=== PATIENT | female | born 1980 | race Caucasian/White ===

== ENCOUNTER 2016-03-25 10:54 | Emergency (ER) | payer BC, MEDICAID ==
[2016-03-25 12:26] VITALS: BP 137/94
== END 2016-03-25 14:25 | disposition left against medical advice (07) ==
LOC: ED 10:54
DX: N89.8 Other specified noninflammatory disorders of vagina (principal); Z53.21 Procedure and treatment not carried out due to patient leaving prior to being seen by health care provider

== ENCOUNTER 2016-03-26 08:22 | Emergency (ER) | payer BC ==
[2016-03-26 08:31] VITALS: BP 130/95
--- NOTE | 2016-03-26 08:57 | Emergency Department Report ---
ED Female HPI - General Chief complaint: Urogenital-Female Stated complaint: VAGINAL PAIN Time Seen by Provider: 03/26/16 08:47 Source: patient Mode of arrival: Ambulatory Limitations: No Limitations - History of Present Illness Initial comments: Patient complains of vaginal pain and white/off-white discharge x (6 days ago). Denies back or flank pain, abdominal pain, dysuria, urgency, frequency, fever, chills, nausea, vomiting, diarrhea. Denies recent abx use. Denies other acute complaints today. LMP 03/14/16. - Related Data Previous Rx's Medication Instructions Recorded Last Taken Type Cephalexin [Keflex] 500 mg PO Q6H #21 capsule 05/17/13 Unknown Rx Promethazine [Phenergan] 25 mg PO Q6H PRN #20 tablet 05/17/13 Unknown Rx Promethazine [Phenergan] 25 mg [place] Q6H PRN #6 supp.rect 05/17/13 Unknown Rx metroNIDAZOLE [Flagyl] 500 mg PO Q12HR #14 tab 03/26/16 Unknown Rx Allergies Allergy/AdvReac Type Severity Reaction Status Date / Time No Known Allergies Allergy Unverified 05/17/13 11:38 ED Review of Systems ROS: Stated complaint: VAGINAL PAIN Other details as noted in HPI Comment: All other systems reviewed and negative ED Past Medical Hx - Past Medical History Additional medical history: bacterial vaginosis - Surgical History Past Surgical History?: No - Social History Smoking Status: Never Smoker Substance Use Type: Alcohol - Medications Home Medications: Home Medications Medication Instructions Recorded Confirmed Last Taken Type Cephalexin [Keflex] 500 mg PO Q6H #21 capsule 05/17/13 Unknown Rx Promethazine [Phenergan] 25 mg PO Q6H PRN #20 tablet 05/17/13 Unknown Rx Promethazine [Phenergan] 25 mg [place] Q6H PRN #6 supp.rect 05/17/13 Unknown Rx metroNIDAZOLE [Flagyl] 500 mg PO Q12HR #14 tab 03/26/16 Unknown Rx ED Physical Exam - General Limitations: No Limitations General appearance: alert, in no apparent distress - Head Head exam: Present: atraumatic, normocephalic - Eye Eye exam: Present: normal appearance, PERRL, EOMI. Absent: scleral icterus, conjunctival injection, periorbital swelling - Neck Neck exam: Present: normal inspection, full ROM. Absent: tenderness, meningismus, lymphadenopathy - Respiratory Respiratory exam: Present: normal lung sounds bilaterally. Absent: respiratory distress - Cardiovascular Cardiovascular Exam: Present: regular rate, normal rhythm - GI/Abdominal GI/Abdominal exam: Present: soft, normal bowel sounds. Absent: distended, tenderness, guarding, rebound, rigid - External exam: Present: normal external exam. Absent: erythema, swelling, bleeding Speculum exam: Present: vaginal discharge (white). Absent: erythema, vaginal bleeding, laceration Bi-manual exam: Present: normal bi-manual exam. Absent: cervical motion tendernes, adnexal tenderness, adnexal mass, uterine enlargement, uterine tenderness - Extremities Exam Extremities exam: Present: normal inspection, full ROM, normal capillary refill. Absent: tenderness, pedal edema, joint swelling - Back Exam Back exam: Present: normal inspection, full ROM. Absent: CVA tenderness (R), CVA tenderness (L) - Neurological Exam Neurological exam: Present: alert, oriented X3, normal gait, reflexes normal. Absent: motor sensory deficit - Psychiatric Psychiatric exam: Present: normal affect, normal mood - Skin Skin exam: Present: warm, dry, intact, normal color. Absent: rash, cyanosis, diaphoretic, erythema, petechiae, pallor, abrasion, ecchymosis ED Course Vital Signs 03/26/16 08:27 Temperature 98.0 F Pulse Rate 80 Respiratory 18 Rate Blood Pressure 130/95 O2 Sat by Pulse 97 Oximetry ED Medical Decision Making - Medical Decision Making 35-year-old female with vaginal pain and discharge and positive clue cells and Trichomonas on wet prep. Patient is stable. She will be DC'd on oral Flagyl ( see prescription). Patient education, follow-up/referral, return instructions provided. Referral of sexual Partner(s) for treatment also discussed. She verbalized understanding and is agreeable to plan. Critical care attestation.: If time is entered above; I have spent that time in minutes in the direct care of this critically ill patient, excluding procedure time. ED Disposition Clinical Impression: Vulvovaginitis Disposition: DISCHARGED TO HOME OR SELFCARE Is pt being admited?: No Does the pt Need Aspirin: No Condition: Stable Instructions: Bacterial Vaginosis (ED), Trichomoniasis (ED), Safe Sex (ED) Prescriptions: metroNIDAZOLE [Flagyl] 500 mg PO Q12HR #14 tab Referrals: [facility] [Outside] - 2-3 Days
== END 2016-03-26 09:51 | disposition home or self-care (01) ==
LOC: ED 08:22
DX: N76.0 Acute vaginitis (principal)
CPT/HCPCS: 87210; 99283

== ENCOUNTER 2016-04-16 12:14 | Emergency (ER) | payer BC ==
[2016-04-16 14:06] VITALS: BP 130/82
[2016-04-16 14:46] LABS: Basophils % (Auto) 0.6 % (0.0-1.8); Eosinophils % (Auto) 4.8 % (0.0-4.3); Hematocrit 39.9 % (30.3-42.9); Hemoglobin 12.9 gm/dl (10.1-14.3); Mean Corpuscular HGB Conc 32 % (30-34); Mean Corpuscular Hemoglobin 29 pg (28-32); Mean Corpuscular Volume 90 fl (79-97); Platelet Count 271 K/mm3 (140-440); Red Blood Count 4.43 M/mm3 (3.65-5.03); Red Cell Distribution Width 13.6 % (13.2-15.2); White Blood Count 5.2 K/mm3 (4.5-11.0)
[2016-04-16 16:47] LABS: Bilirubin,Urine NEG (Negative); Blood,Urine LG (Negative); Ketones,Urine NEG (Negative); Leukocyte Esterase,Urine NEG (Negative); Mucus,Urine 1+ /HPF; Nitrite,Urine NEG (Negative); Urobilinogen,Urine < 2.0 mg/dL (<2.0)
[2016-04-16 16:49] LABS: RBC,Urine > 182.0 /HPF (0.0-6.0)
--- NOTE | 2016-04-16 18:16 | Emergency Department Report ---
HPI - General Chief Complaint: Vaginal Bleeding Time Seen by Provider: 04/16/16 18:15 - HPI HPI: Patient is a 35-year-old female who presents complaining of vaginal tones. Patient states she said about 3 packs a day and is experiencing some clots. Patient reports last menstrual period was March 11 2016. Patient states she took a test at home about a week and a half ago that was faint positive. Patient admits mild pelvic cramping. Patient denies fevers/chills/ nausea/vomiting/abdominal pain/diarrhea/sob/chest pain problems. ED Past Medical Hx - Past Medical History Additional medical history: bacterial vaginosis - Social History Smoking Status: Never Smoker Substance Use Type: Alcohol - Medications Home Medications: Home Medications Medication Instructions Recorded Confirmed Last Taken Type Cephalexin [Keflex] 500 mg PO Q6H #21 capsule 05/17/13 Unknown Rx Promethazine [Phenergan] 25 mg PO Q6H PRN #20 tablet 05/17/13 Unknown Rx Promethazine [Phenergan] 25 mg [place] Q6H PRN #6 supp.rect 05/17/13 Unknown Rx metroNIDAZOLE [Flagyl] 500 mg PO Q12HR #14 tab 03/26/16 Unknown Rx ED Review of Systems ROS: Stated complaint: POSS W/CRAMPING AND CLOTS Other details as noted in HPI Physical Exam - Physical Exam Vital Signs: Vital Signs 04/16/16 14:02 Temperature 98.8 F Pulse Rate 75 Respiratory 17 Rate Blood Pressure 130/82 O2 Sat by Pulse 100 Oximetry Physical Exam: GENERAL: Alert and oriented x3, no apparent distress, Normal Gait, atraumatic. HEAD: Head is normocephalic and a-traumatic. EYES: Extra ocular muscles are intact. Pupils are equal, round, and reactive to light and accommodation. EARS: symetrical, atraumatic, non tender. gross auditory nml bilaterally. NOSE: Nose symetrical, Nontender,Nares appeared normal. MOUTH:Mouth is well hydrated and without lesions. Mucous membranes are moist. Posterior pharynx clear, no exudate or lesions. Patent airways. NECK: Supple. Non edematous, No carotid bruits. No lymphadenopathy or thyromegaly. LUNGS: Symetrical with respiration, No wheezing, no rales or crackles, CTAB. HEART: S1, S2 present, regular rate and rhythm without murmur, no rubs, no gallops. ABDOMEN: No organomegaly was noted,Positive bowel sounds, soft, and non- distended. . Nontender to palpation on all Quadrants, NO CVA tenderness. EXTREMITIES/MUSCULOSKELETAL: No cyanosis, clubbing, rash, lesions or edema. Full ROM bilaterally. UE/LE Pulses 2+ bilaterally. LE and UE 5+ strength bilaterally NEUROLOGIC: No focal Deficit, Cranial nerves II through XII are grossly intact. No loss of sensation, PSYCHIATRIC: Mood is congruent with affect, denies suicidal or homicidal ideations. SKIN: Warm and dry, No lesions, No ulceration or induration present. ED Course Vital Signs 04/16/16 14:02 Temperature 98.8 F Pulse Rate 75 Respiratory 17 Rate Blood Pressure 130/82 O2 Sat by Pulse 100 Oximetry ED Medical Decision Making - Lab Data Result diagrams: 04/16/16 14:25 - Radiology Data Radiology results: report reviewed INAL REPORT EXAM: US PELVIC COMPLETE HISTORY: vaginal bleed TECHNIQUE: Ultrasound pelvis transabdominal PRIORS: Correlated with today's transvaginal exam FINDINGS: Right ovary is 3.7 x 2.6 x 4.1 centimeters with a 3.0 complex appearing cyst Uterus is 9.4 x 4.3 x 4.9 centimeters. No myometrial abnormality seen. Endometrial stripe is 0.92 centimeters left ovary is 3.5 x 1.8 x 3.3 centimeters. No abnormal mass or cyst seen No free fluid seen in the cul-de-sac IMPRESSION: 3 centimeter right ovarian cyst which may be hemorrhagic No additional abnormality seen - Medical Decision Making 35-year-old female presents with abnormal uterine bleed Discussed with patient that she was not . test was negative and beta Quant was negative too. Patient's vitals are stable, patient was not in any acute murmur suture distress. Discussed the patient she will need to follow-up with [facility]. Discussed the patient ordered an ultrasound is ordered. Patient eloped after ultrasound was completed Critical care attestation.: If time is entered above; I have spent that time in minutes in the direct care of this critically ill patient, excluding procedure time. ED Disposition Clinical Impression: Abnormal uterine bleeding (AUB), Right ovarian cyst Disposition: ELOPED Is pt being admited?: No Does the pt Need Aspirin: No Condition: Undetermined Referrals: PRIMARY CARE, [Primary Care Provider] - 3-5 Days
--- NOTE | 2016-04-16 20:21 | Ultrasound Report ---
FINAL REPORT EXAM: US TRANSVAGINAL HISTORY: vaginal bleed TECHNIQUE: Ultrasound pelvis transvaginal with color Doppler evaluation PRIORS: None. FINDINGS: Uterus measures 9.4 x 4.3 x 4.9 centimeters. No myometrial abnormality seen Endometrial thickness is 0.92 centimeters right ovary is 3.7 x 2.6 x 4.1 centimeters. There is a complex appearing cyst within the right ovary 2.0 centimeters with some low-level internal echoes. Could be hemorrhagic. The left ovary measures 3.5 x 1.8 x 3.3 centimeters. No abnormal mass or cyst identified No free fluid seen in the cul-de-sac IMPRESSION: 3 centimeter complex appearing right ovarian cyst which may be hemorrhagic Otherwise negative study
--- NOTE | 2016-04-16 20:22 | Ultrasound Report ---
FINAL REPORT EXAM: US PELVIC COMPLETE HISTORY: vaginal bleed TECHNIQUE: Ultrasound pelvis transabdominal PRIORS: Correlated with today's transvaginal exam FINDINGS: Right ovary is 3.7 x 2.6 x 4.1 centimeters with a 3.0 complex appearing cyst Uterus is 9.4 x 4.3 x 4.9 centimeters. No myometrial abnormality seen. Endometrial stripe is 0.92 centimeters left ovary is 3.5 x 1.8 x 3.3 centimeters. No abnormal mass or cyst seen No free fluid seen in the cul-de-sac IMPRESSION: 3 centimeter right ovarian cyst which may be hemorrhagic No additional abnormality seen
== END 2016-04-16 19:45 | disposition left against medical advice (07) ==
LOC: ED 12:14
DX: N83.201 Unspecified ovarian cyst, right side (principal)
CPT/HCPCS: 36415; 76830; 76856; 81001; 84702; 85025; 86850; 86900; 86901

== ENCOUNTER 2016-08-09 08:46 | Emergency (ER) | payer BC, MEDICAID ==
[2016-08-09 09:32] VITALS: BP 114/77
[2016-08-09 09:55] LABS: Basophils % (Auto) 0.3 % (0.0-1.8); Eosinophils % (Auto) 2.2 % (0.0-4.3); Hematocrit 40.7 % (30.3-42.9); Hemoglobin 13.5 gm/dl (10.1-14.3); Mean Corpuscular HGB Conc 33 % (30-34); Mean Corpuscular Hemoglobin 29 pg (28-32); Mean Corpuscular Volume 88 fl (79-97); Platelet Count 242 K/mm3 (140-440); Red Blood Count 4.61 M/mm3 (3.65-5.03); Red Cell Distribution Width 13.5 % (13.2-15.2); White Blood Count 7.6 K/mm3 (4.5-11.0)
[2016-08-09 10:32] LABS: Anion Gap 16 mmol/L; BUN/Creatinine Ratio 11.66; Blood Urea Nitrogen 7 mg/dL (7-17); Calcium 9.5 mg/dL (8.4-10.2); Carbon Dioxide 25 mmol/L (22-30); Chloride 106.3 mmol/L (98-107); Glucose 102 mg/dL (65-100); Potassium 4.7 mmol/L (3.6-5.0); Sodium 143 mmol/L (137-145)
[2016-08-09 10:40] LABS: Bacteria,Urine 1+ /HPF (Negative); Bilirubin,Urine NEG (Negative); Blood,Urine NEG (Negative); Ketones,Urine NEG (Negative); Leukocyte Esterase,Urine SM (Negative); Mucus,Urine 2+ /HPF; Nitrite,Urine NEG (Negative); Urobilinogen,Urine < 2.0 mg/dL (<2.0)
[2016-08-09 10:47] LABS: RBC,Urine < 1.0 /HPF (0.0-6.0)
--- NOTE | 2016-08-14 13:44 | ED Elopement Review ---
ED Pt Elopement review - Results review Lab results: Laboratory Tests 08/09/16 08/09/16 08/09/16 09:43 09:43 10:01 WBC 7.6 RBC 4.61 Hgb 13.5 Hct 40.7 MCV 88 MCH 29 MCHC 33 RDW 13.5 Plt Count 242 Lymph % (Auto) 23.1 [place] % (Auto) 8.1 H Eos % (Auto) 2.2 Baso % (Auto) 0.3 Lymph # 1.8 [place] # 0.6 Eos # 0.2 Baso # 0.0 Seg Neutrophils % 66.3 Seg Neutrophils # 5.0 Sodium 143 Potassium 4.7 Chloride 106.3 Carbon Dioxide 25 Anion Gap 16 BUN 7 Creatinine 0.6 L Estimated GFR > 60 BUN/Creatinine Ratio 11.66 Glucose 102 H Calcium 9.5 Urine Color Yellow Urine Turbidity Slightly-cloudy Urine pH 8.0 H Ur Specific [place] 1.028 Urine Protein 30 mg/dl Urine Glucose (UA) Neg Urine Ketones Neg Urine Blood Neg Urine Nitrite Neg Urine Bilirubin Neg Urine Urobilinogen < 2.0 Ur Leukocyte Esterase Sm Urine WBC (Auto) 4.0 Urine RBC (Auto) < 1.0 U Epithel Cells (Auto) 14.0 H Urine Bacteria (Auto) 1+ Amorphous Crystals Few Urine Mucus 2+ - Call Back decision Pt Call Back Decision: No action required
== END 2016-08-09 15:35 | disposition left against medical advice (07) ==
LOC: ED 08:46
DX: O21.9 Vomiting of pregnancy, unspecified (principal); Z3A.09 9 weeks gestation of pregnancy; Z53.21 Procedure and treatment not carried out due to patient leaving prior to being seen by health care provider
CPT/HCPCS: 36415; 80048; 81001; 85025

== ENCOUNTER 2017-01-14 12:40 | Outpatient (CLI) | payer MEDICAID ==
--- NOTE | 2017-01-14 14:23 | Ultrasound Report ---
RIGHT UPPER QUADRANT ULTRASOUND: HISTORY: Nausea and vomiting. Technique: Transabdominal ultrasound imaging with Doppler interrogation. FINDINGS: The gallbladder is sonolucent with no evidence of stones, polyps or wall thickening. The common duct is normal in caliber. Images of the liver parenchyma, pancreas, right kidney and aorta are within normal limits. No perihepatic ascites. IMPRESSION: Unremarkable right upper quadrant ultrasound.
== END 2017-01-14 12:41 | disposition home or self-care (01) ==
LOC: US 12:40
PROVIDERS: ATTEND Obstetrics & Gynecology
DX: R11.2 Nausea with vomiting, unspecified (principal)
CPT/HCPCS: 76705